=== PATIENT | female | born 1955 | race Caucasian/White ===

== ENCOUNTER 2017-12-23 17:27 | Emergency (ER) | payer BC ==
[2017-12-23] MEDS: KETOROLAC 30 MG INJ IM (18:13)
[2017-12-23] MEDS: HYDROmorphONE 2 MG/ML SYG IM (18:13)
[2017-12-23] MEDS: ONDANSETRON (ODT) 4 MG TAB ODT (18:14)
== END 2017-12-23 19:35 | disposition home or self-care (01) ==
LOC: E/R 19:35
DX: M79.601 Pain in right arm (principal); M54.12 Radiculopathy, cervical region; R20.0 Anesthesia of skin
CPT/HCPCS: 70450; 72125; 96372; 99285-25

== ENCOUNTER 2018-04-13 17:45 | Emergency (ER) | payer SELFPAY, BC | END 2018-04-13 20:00 | disposition left against medical advice (07) | LOC: E/R 17:45 | DX: Z53.21 Procedure and treatment not carried out due to patient leaving prior to being seen by health care provider (principal) | CPT/HCPCS: 93005 ==

== ENCOUNTER 2018-12-31 12:40 | Observation (INO) | payer BC ==
[2018-12-31 14:50] LABS: ADD MAN DIFF? NO
[2018-12-31 14:54] LABS: WHITE BLOOD COUNT 4.8 10^3/ul (4.8-10.8)
[2018-12-31 14:54] LABS: BASOPHILS % 0.2 % (0.0-2.0); EOSINOPHILS # 0.1 10^3/ul (0.0-0.5); EOSINOPHILS % 1.7 % (0.0-7.0); HEMATOCRIT 39.4 % (37.0-47.0); HEMOGLOBIN 12.9 g/dl (12.0-16.0); LYMPHOCYTES % 41.9 % (15.0-51.0); MEAN CORPUSCULAR HEMOGLOBIN 31.8 pg (29.0-33.0); MEAN CORPUSCULAR HGB CONC 32.7 g/dl (32.0-37.0); MEAN PLATELET VOLUME 9.9 fl (7.4-10.4); MONOCYTE # 0.3 10^3/ul (0.3-0.9); MONOCYTES % 6.1 % (0.0-11.0); NEUTROPHIL # 2.4 10^3/ul (1.6-7.5); NEUTROPHILS % 49.9 % (39.0-77.0); PLATELET COUNT 201 10^3/UL (140-415); RED BLOOD COUNT 4.06 10^6/ul (4.20-5.40); RED CELL DISTRIBUTION WIDTH 12.2 % (11.5-14.5)
[2018-12-31] MEDS: ASPIRIN 81 MG TAB PO (15:07)
[2018-12-31 15:20] LABS: ANION GAP 8 (5-13); BLOOD UREA NITROGEN 18 mg/dl (7-20); CALCIUM 9.5 mg/dl (8.4-10.2); CARBON DIOXIDE 28 mmol/L (21-31); CHLORIDE 99 mmol/L (97-110); CREATININE 0.61 mg/dl (0.44-1.00); Estimated GFR > 60 mL/min (>60); GLUCOSE 90 mg/dl (70-220); POTASSIUM 4.4 mmol/L (3.5-5.1); SODIUM 135 mmol/L (135-144)
[2018-12-31 15:31] LABS: TROPONIN-I < 0.012 ng/ml (0.000-0.120)
[2018-12-31] MEDS ORDERED: ACETAMINOPHEN 325 MG TAB PO (16:30)
[2018-12-31] MEDS ORDERED: morphine 2 MG INJ IV (16:30)
[2018-12-31] MEDS ORDERED: ONDANSETRON 4 MG INJ IV ×2 (16:30)
[2018-12-31] MEDS ORDERED: NITROGLYCERIN (SL) 0.4 MG TAB SL (16:30)
[2018-12-31] MEDS ORDERED: HYDROCODONE/APAP (5/325) TAB PO (16:30)
[2018-12-31] MEDS ORDERED: NACL 0.9% 3 ML SYG IV (16:30)
[2018-12-31] MEDS: PANTOPRAZOLE (EC) 40 MG TAB PO (18:04)
[2018-12-31] MEDS: LIDOCAINE/MYLANTA 40 ML BTL PO (19:08)
[2018-12-31] MEDS: ACETAMINOPHEN 325 MG TAB PO (19:08)
[2018-12-31] MEDS: ATORVASTATIN 80 MG TAB PO (21:03)
[2018-12-31 21:37] LABS: TROPONIN-I < 0.012 ng/ml (0.000-0.120)
[2019-01-01 03:35] LABS: ADD MAN DIFF? NO
[2019-01-01 03:50] LABS: HEMOGLOBIN A1C 4.8 % (0-5.9)
[2019-01-01 04:04] LABS: BASOPHILS % 0.5 % (0.0-2.0); EOSINOPHILS # 0.1 10^3/ul (0.0-0.5); EOSINOPHILS % 2.8 % (0.0-7.0); HEMATOCRIT 38.7 % (37.0-47.0); HEMOGLOBIN 12.6 g/dl (12.0-16.0); LYMPHOCYTES % 50.6 % (15.0-51.0); MEAN CORPUSCULAR HEMOGLOBIN 31.1 pg (29.0-33.0); MEAN CORPUSCULAR HGB CONC 32.6 g/dl (32.0-37.0); MEAN CORPUSCULAR VOLUME 95.6 fl (82.0-101.0); MEAN PLATELET VOLUME 10.2 fl (7.4-10.4); MONOCYTE # 0.3 10^3/ul (0.3-0.9); MONOCYTES % 8.1 % (0.0-11.0); NEUTROPHIL # 1.5 10^3/ul (1.6-7.5); PLATELET COUNT 197 10^3/UL (140-415); RED BLOOD COUNT 4.05 10^6/ul (4.20-5.40); RED CELL DISTRIBUTION WIDTH 12.5 % (11.5-14.5)
[2019-01-01 04:08] LABS: ALANINE AMINOTRANSFERASE 21 IU/L (13-69); ALBUMIN/GLOBULIN RATIO 1.53; ALKALINE PHOSPHATASE 59 IU/L (42-121); ANION GAP 6 (5-13); ASPARTATE AMINO TRANSFERASE 42 IU/L (15-46); BILIRUBIN,INDIRECT 0.9 mg/dl (0-1.1); BILIRUBIN,TOTAL 0.9 mg/dl (0.2-1.3); BLOOD UREA NITROGEN 17 mg/dl (7-20); CALCIUM 9.1 mg/dl (8.4-10.2); CARBON DIOXIDE 26 mmol/L (21-31); CHLORIDE 104 mmol/L (97-110); CHOL/HDL RATIO 2.9 RATIO; CHOLESTEROL 235 mg/dl (100-200); CREATININE 0.62 mg/dl (0.44-1.00); Estimated GFR > 60 mL/min (>60); GLUCOSE 93 mg/dl (70-220); HDL CHOLESTEROL 81 mg/dl (35-98); LDL CHOLESTEROL,CALCULATED 138 mg/dl; MAGNESIUM 2.3 mg/dl (1.7-2.5); SODIUM 136 mmol/L (135-144); TOTAL PROTEIN 6.6 g/dl (6.1-8.1); TRIGLYCERIDES 82 mg/dl (0-149)
[2019-01-01 04:19] LABS: TROPONIN-I < 0.012 ng/ml (0.000-0.120)
[2019-01-01] MEDS: PANTOPRAZOLE (EC) 40 MG TAB PO (05:58)
[2019-01-01] MEDS: ASPIRIN 81 MG TAB PO (08:24)
== END 2019-01-01 10:30 | disposition left against medical advice (07) ==
LOC: E/R 12:40 → 6WM 16:15
DX: R07.9 Chest pain, unspecified (principal); G62.9 Polyneuropathy, unspecified
CPT/HCPCS: 36415; 71045; 80048; 80053; 80061; 83036; 83735; 84443; 84484; 85025; 93005; 99217; 99285-25